=== PATIENT | male | born 1950 | race Caucasian/White ===

== ENCOUNTER 2016-06-02 12:30 | Day surgery (SDC) | payer OTHER ==
[~2016-06-02] VITALS: Ht 175.3 cm; Wt 86.2 kg
[~2016-06-02 12:30] MED LIST: CRESTOR5 MG PO; DAILY VALUE1 EACH PO; LO-DOSE ASPIRIN81 M1 PO
[2016-06-02 13:13] VITALS: BP 133/82
[2016-06-02 17:40] VITALS: BP 141/73
[2016-06-02 18:34] VITALS: BP 126/97
== END 2016-06-02 18:50 | disposition home or self-care (01) ==
LOC: SDC 12:30
DX: M75.42 Impingement syndrome of left shoulder (principal); M19.012 Primary osteoarthritis, left shoulder; M75.122 Complete rotator cuff tear or rupture of left shoulder, not specified as traumatic; E78.5 Hyperlipidemia, unspecified; Z79.82 Long term (current) use of aspirin; Z88.0 Allergy status to penicillin
CPT/HCPCS: 93005; C1713; J0131; J0171; J1100; J2250; J2405; J2795; J3010